=== PATIENT | female | born 1985 | race Caucasian/White ===

== ENCOUNTER 2018-06-11 10:05 | Inpatient (IN) | payer MEDICAID ==
[~2018-06-11] VITALS: Ht 162.7 cm; Wt 71.4 kg
[2018-06-11] VITALS (18 sets, daily range): BP systolic 85–131; BP diastolic 61–82; PULSE 62–107; TEMP 97.6–98.8
[~2018-06-11 10:05] MED LIST: AVIANE 0.02 MG-1 TAB PO; PRENATAL1 TA1 PO
[2018-06-11 10:35] LABS: BASO % 0.2 % (0.0-2.0); EOS % 0.4 % (0-4.0); GRAN # 6.4 (1.4-6.5); GRAN % 78.7 % (42.2-75.2); HEMATOCRIT 41.9 % (37.0-47.0); HEMOGLOBIN 14.9 g/dl (12.5-16.0); LYMPH # 1.1 (1.2-3.4); MEAN CELL VOLUME 94 fl (80.0-100.0); MEAN CORPUSCULAR HEMOGLOBIN 33 pg (27.0-31.0); MEAN CORPUSCULAR HGB CONC 36 g/dl (33.0-37.0); MEAN PLATELET VOLUME 10.5 fl (7.4-10.4); MONO # 0.5 (0.1-0.6); MONO % 6.2 % (1.7-9.3); PLATELET COUNT 150 K/mm3 (130-400); RED BLOOD COUNT 4.47 M/mm3 (4.10-5.30); REDCELL DISTRIBUTION WIDTH-CV 13.8 % (11.5-14.5)
[2018-06-11] MEDS ORDERED: PROBIOTIC ACID1 EAC3 PO (10:43)
[2018-06-11] MEDS ORDERED: PRENATAL PLUS PO (10:43)
[2018-06-12] VITALS: BP 106/66; PULSE 75; TEMP 97.8
[2018-06-12 02:58] VITALS: BP 106/66; PULSE 83; TEMP 98.6
[2018-06-12 07:15] VITALS: BP 99/72; PULSE 88; TEMP 98
[2018-06-12 15:15] VITALS: BP 120/62; PULSE 80; TEMP 98.1
[2018-06-12 20:30] VITALS: BP 109/72; PULSE 78; TEMP 98.2
[2018-06-13 07:54] VITALS: BP 101/65; PULSE 75; TEMP 98.8
[2018-06-13] MEDS ORDERED: PERCOCET 325 MG1 TA2 PO (12:45)
[2018-06-13] MEDS ORDERED: IBU600 MG PO (12:45)
[2018-06-13 16:16] VITALS: BP 98/72; PULSE 85; TEMP 97.7
[2018-06-13 20:00] VITALS: BP 111/63; PULSE 63; TEMP 97.7
[2018-06-14 08:30] VITALS: BP 133/80; PULSE 79; TEMP 98.3
== END 2018-06-14 12:30 | disposition home or self-care (01) | DRG 766 ==
LOC: OB 10:05 → LDR 18:06 → OB 06-14 12:30
PROVIDERS: Obstetrics & Gynecology
PROC: 0UT70ZZ Resection of Bilateral Fallopian Tubes, Open Approach (ICD-10-PCS; principal; 2018-06-11)
PROC: 10D00Z1 Extraction of Products of Conception, Low, Open Approach (ICD-10-PCS; 2018-06-11)
DX: O34.211 Maternal care for low transverse scar from previous cesarean delivery (principal); Z30.2 Encounter for sterilization; Z37.0 Single live birth; Z3A.39 39 weeks gestation of pregnancy
CPT/HCPCS: J0690; J1885; J2270; J2405; J2590; J7120

== ENCOUNTER 2022-07-07 14:20 | Emergency (ER) | payer BC ==
[~2022-07-07] VITALS: Ht 162.6 cm; Wt 81.8 kg
[~2022-07-07 14:20] MED LIST changes: +IBU600 MG PO; +PERCOCET 325 MG1 TA2 PO; +PRENATAL PLUS PO; +PROBIOTIC ACID1 EAC3 PO
[2022-07-07 15:07] VITALS: BP 105/77; TEMP 98.8
[2022-07-07 17:22] VITALS: PULSE 82
== END 2022-07-07 17:30 | disposition home or self-care (01) ==
LOC: COL.ER 14:20
DX: S93.402A Sprain of unspecified ligament of left ankle, initial encounter (principal); W11.XXXA Fall on and from ladder, initial encounter

== ENCOUNTER → 2022-08-09 | Outpatient (CLI) | payer BC | LOC: COL.RAD 07:09 | DX: D35.2 Benign neoplasm of pituitary gland (principal); E22.1 Hyperprolactinemia | CPT/HCPCS: A9575 ==